=== PATIENT | male | born 1970 | race Caucasian/White ===

== ENCOUNTER 2018-06-21 09:55 | Day surgery (SDC) | payer BC ==
[2018-06-14 16:53] VITALS: BMI 25.4
[2018-06-21] MEDS ORDERED: PROPOFOL 20 ML ONE ×2 (10:01)
[2018-06-21] MEDS ORDERED: LIDOCAINE HCL/PF 2% SDV 5ML VIAL ONE ×2 (10:02→10:08)
[2018-06-21 15:45] VITALS: TEMP 98.7
[2018-06-21 15:51] VITALS: PULSE 68
[2018-06-21 16:00] VITALS: BP 119/63
--- NOTE | 2018-06-23 17:47 | PATH ---
Surgical Pathology Report Patient Name: REYNALDO DONNELLY [facility]. Rec. #: [id number] /Age/Gender: 1970 (Age: 47) / M Account: [id number] Location: [facility] Taken: 06/21/2018 Received: 06/21/2018 Reported: 06/23/2018 Physicians: Philly Rodriguez M.D. Specimen(s) Received SIGMOID COLON AT 20 CM Clinical History r/o colon cancer Final Diagnosis SIGMOID COLON, 20 CM, POLYP, BIOPSY: TUBULAR ADENOMA. Electronically Signed Philly Vega M.D. Gross Description Received in formalin, labeled "sigmoid colon polyp at 20 cm" is a cloud, irregular portion of soft tissue measuring 0.4 cm. in greatest dimension. The specimen is submitted in toto in one cassette. ebram/06/23/2018
== END 2018-06-21 12:45 | disposition home or self-care (01) ==
LOC: FASU-ENDO 09:55
PROVIDERS: ATTEND Internal Medicine Gastroenterology
PROC: 0DBN8ZX Excision of Sigmoid Colon, Via Natural or Artificial Opening Endoscopic, Diagnostic (ICD-10-PCS; principal; 2018-06-21 11:41)
DX: Z12.11 Encounter for screening for malignant neoplasm of colon (principal); D12.5 Benign neoplasm of sigmoid colon; K64.2 Third degree hemorrhoids
CPT/HCPCS: 88305-TC

== ENCOUNTER 2018-08-30 08:49 | Day surgery (SDC) | payer BC ==
[2018-08-17 16:16] VITALS: BMI 25.5
[2018-08-30] MEDS ORDERED: LIDOCAINE HCL/PF 2% SDV 5ML VIAL ONE (10:14)
[2018-08-30] MEDS ORDERED: PROPOFOL 20 ML ONE (10:14)
[2018-08-30 11:17] VITALS: TEMP 98
[2018-08-30 11:19] VITALS: BP 126/74; PULSE 62
--- NOTE | 2018-09-01 15:52 | PATH ---
Surgical Pathology Report Patient Name: REYNALDO DONNELLY [facility]. Rec. #: [id number] /Age/Gender: 1970 (Age: 47) / M Account: [id number] Location: [facility] Taken: 08/30/2018 Received: 08/30/2018 Reported: 09/01/2018 Physicians: Philly Rodriguez M.D. Specimen(s) Received A: BX SECOND PORTION DUODENUM B: BX ANTRUM C: BX GE JUNCTION Clinical History Weight loss Postoperative diagnosis: Gastritis, mucosal tongue, rule out Stone's Final Diagnosis A. SECOND PORTION OF DUODENUM, BIOPSY: DUODENAL MUCOSA WITH NO PATHOLOGIC FINDINGS. B. ANTRUM, BIOPSY: MILD CHRONIC GASTRITIS. IMMUNOSTAIN IS NEGATIVE FOR H. PYLORI ORGANISMS. C. GE JUNCTION, BIOPSY: ESOPHAGOGASTRIC JUNCTIONAL (SQUAMOCOLUMNAR) MUCOSA SHOWING MODERATE CHRONIC INFLAMMATION. NEGATIVE FOR INTESTINAL METAPLASIA. Electronically Signed Arti Parmar M.D. Gross Description A. Received in formalin, labeled "second portion of duodenum biopsy" is a cloud, irregular portion of soft tissue measuring 0.4 cm. in greatest dimension. The specimen is submitted in toto in one cassette. B. Received in formalin, labeled "antrum biopsy" is a cloud, irregular portion of soft tissue measuring 0.3 cm. in greatest dimension. The specimen is submitted in toto in one cassette. C. Received in formalin, labeled "GE junction biopsy" is a cloud, irregular portion of soft tissue measuring 0.3 cm. in greatest dimension. The specimen is submitted in toto in one cassette. 08/31/2018 saudi08/31/2018
== END 2018-08-30 11:19 | disposition home or self-care (01) ==
LOC: FASU-ENDO 08:49
PROVIDERS: ATTEND Internal Medicine Gastroenterology
PROC: 0DB68ZX Excision of Stomach, Via Natural or Artificial Opening Endoscopic, Diagnostic (ICD-10-PCS; 2018-08-30)
PROC: 0DB48ZX Excision of Esophagogastric Junction, Via Natural or Artificial Opening Endoscopic, Diagnostic (ICD-10-PCS; 2018-08-30)
PROC: 0DB98ZX Excision of Duodenum, Via Natural or Artificial Opening Endoscopic, Diagnostic (ICD-10-PCS; principal; 2018-08-30 10:00)
DX: D64.9 Anemia, unspecified (principal); K29.50 Unspecified chronic gastritis without bleeding; K20.9 Esophagitis, unspecified
CPT/HCPCS: 88305-TC; 88342-TC

== ENCOUNTER 2023-12-21 10:49 | Day surgery (SDC) | payer BC ==
[2023-12-12 14:44] VITALS: BMI 32.1
[2023-12-21 13:04] VITALS: TEMP 97.1
[2023-12-21 13:06] VITALS: BP 146/77; PULSE 78; RESP 19
== END 2023-12-21 13:08 | disposition home or self-care (01) ==
LOC: FASU-ENDO 10:49
PROVIDERS: ATTEND Internal Medicine Gastroenterology
PROC: 0DJD8ZZ Inspection of Lower Intestinal Tract, Via Natural or Artificial Opening Endoscopic (ICD-10-PCS; principal; 2023-12-21 12:26)
DX: Z12.11 Encounter for screening for malignant neoplasm of colon (principal); K64.1 Second degree hemorrhoids; K64.8 Other hemorrhoids; Z86.010 Personal history of colon polyps

== ENCOUNTER 2024-02-29 09:41 | Day surgery (SDC) | payer BC ==
[2024-02-21 10:59] VITALS: BMI 31.2
[2024-02-29 10:02] VITALS: RESP 18; TEMP 97.5
[2024-02-29] MEDS ORDERED: PROPOFOL 80 ML ONE (10:57)
[2024-02-29 11:55] VITALS: BP 115/62; PULSE 78
== END 2024-02-29 11:55 | disposition home or self-care (01) ==
LOC: FASU-ENDO 09:41
PROVIDERS: ATTEND Internal Medicine Gastroenterology
PROC: 0DJD8ZZ Inspection of Lower Intestinal Tract, Via Natural or Artificial Opening Endoscopic (ICD-10-PCS; principal; 2024-02-29 11:09)
DX: Z12.11 Encounter for screening for malignant neoplasm of colon (principal); K64.1 Second degree hemorrhoids; Z86.010 Personal history of colon polyps